=== PATIENT | female | born 2000 | race Caucasian/White ===

== ENCOUNTER 2022-09-21 22:39 | Emergency (ER) | payer OTHER ==
[~2022-09-21] VITALS: Ht 162.6 cm; Wt 62.0 kg
[2022-09-21] MEDS ORDERED: PYRIDIUM100 MG PO (23:37)
[2022-09-21] MEDS ORDERED: MACROBID 100 M100 MG PO (23:37)
[2022-09-21 23:56] VITALS: BP 108/70
== END 2022-09-22 00:01 | disposition home or self-care (01) ==
LOC: ED 22:39
DX: N39.0 Urinary tract infection, site not specified (principal); Z88.0 Allergy status to penicillin
CPT/HCPCS: 81001; 84703; 99283